=== PATIENT | female | born 1950 | race Caucasian/White ===

== ENCOUNTER 2017-10-25 12:27 | Emergency (ER) | payer MEDICARE, MEDICAID ==
[~2017-10-25] VITALS: Ht 162.6 cm; Wt 100.0 kg
[~2017-10-25 12:27] MED LIST: ATEN100T; LOSA50TA20 PO; SIMV10TA6 PO
[2017-10-25] MEDS ORDERED: OXYCODONE HCL/ACETAMINOPHEN 5/325MG TABLET PO ONE ×2 (12:45→16:30)
[2017-10-25] MEDS ORDERED: MORPHINE SULFATE 4 MG/ML CPJ (NOT FOR IM USE) IV ONE (13:45)
[2017-10-25] MEDS ORDERED: PROPOFOL 200MG/20ML VIAL IV ONE (14:15)
[2017-10-25] MEDS ORDERED: KETAMINE HCL 50 MG/ML 10ML IV ONE (14:15)
[2017-10-25 16:48] VITALS: BP 148/71
== END 2017-10-25 17:07 | disposition home or self-care (01) ==
LOC: ER 12:28
DX: S42.492A Other displaced fracture of lower end of left humerus, initial encounter for closed fracture (principal); I10 Essential (primary) hypertension; E78.00 Pure hypercholesterolemia, unspecified; Z88.6 Allergy status to analgesic agent; Z90.49 Acquired absence of other specified parts of digestive tract; V00.131A Fall from skateboard, initial encounter; Y93.89 Activity, other specified; Y92.018 Other place in single-family (private) house as the place of occurrence of the external cause
CPT/HCPCS: 24600; 73030; 73070; 73080; 73100; 99152; 99291; J2270; J3490; J2704

== ENCOUNTER 2017-10-26 15:02 | Emergency (ER) | payer MEDICARE, MEDICAID ==
[~2017-10-26] VITALS: Ht 162.6 cm; Wt 100.0 kg
[2017-10-26 15:27] VITALS: BP 158/77
== END 2017-10-26 20:25 | disposition left against medical advice (07) ==
LOC: ER 17:00
DX: M79.642 Pain in left hand (principal); Z53.21 Procedure and treatment not carried out due to patient leaving prior to being seen by health care provider